=== PATIENT | male | born 1975 | race Caucasian/White ===

== ENCOUNTER → 2022-05-13 15:19 | Outpatient (CLI) | payer OTHER, SELFPAY ==
--- NOTE | ~2022-05-13 | US_ITS ---
US soft tissue LE 05/13/2022 15:35 Indication: Left popliteal pain Procedure: High-resolution Limited ultrasound of the left popliteal space Comparison: No prior studies for comparison. Findings: There is normal heterogeneous echotexture. No discrete solid or cystic mass. Impression: 1: Normal soft tissue ultrasound of the left popliteal space. No discrete mass. Reviewed, dictated and finalized at location B. Impression: 1: Normal soft tissue ultrasound of the left popliteal space. No discrete mass.
--- NOTE | ~2022-05-13 | XR_ITS ---
XR knee LT min 4V 05/13/2022 15:43 Indication: Left knee pain Procedure: 4 views left knee Comparison: No prior studies for comparison. Findings: There is anatomic alignment. No significant joint space narrowing. No fracture or traumatic malalignment. Small joint effusion. Impression: 1: Small joint effusion. Reviewed, dictated and finalized at location B. Impression: 1: Small joint effusion.
== END ==
PROVIDERS: PCP Internal Medicine; Visit Provider Internal Medicine
DX: M25.462 Effusion, left knee (principal)
CPT/HCPCS: 73564; 76882

== ENCOUNTER → 2022-06-15 15:39 | Outpatient (CLI) | payer OTHER, SELFPAY ==
--- NOTE | ~2022-06-15 | MR_ITS ---
EXAMINATION: MR knee LT wo con DATE: 06/15/2022 16:15 INDICATION: Left knee pain TECHNIQUE: Magnetic resonance imaging (MRI) of the left knee was performed without intravenous contra st. Sequences included coronal PD-weighted FSE, coronal PD-weighted FS FSE, sagittal T2-weighted FSE , sagittal PD-weighted FS FSE and axial PD weighted fat saturated FSE. COMPARISON: None. FINDINGS: Medial compartment: Vertical parrot beak configuration tear extending slightly medially and peripherally from the free ed ge to the periphery of the posterior horn of the medial meniscus. Articular cartilage is normal. Lateral compartment: Lateral meniscus is normal. Articular cartilage is normal. Patellofemoral compartment: Articular cartilage is normal. Ligaments and tendons: Anterior and posterior cruciate ligaments are normal. There is thickening and minimal increased signa l of the proximal medial collateral ligament without surrounding edema consistent with scarring relat ed to chronic sprain. The fibular collateral ligament complex is normal. The extensor mechanism is no rmal. The visualized medial and lateral hamstring tendons as well as the iliotibial band are normal. Fluid: Physiologic amount of fluid in the joint space. No loose osteochondral bodies identified. Osseous/other: There is prominent marrow edema at the medial femoral condyle surrounding deep from a subtle linear s ubarticular impaction fracture line with slight flattening but no disruption of the overlying articul ar cortex. No pathologic marrow replacing process. IMPRESSION: 1. Slight flattening of the articular cortex overlying a relatively recent subarticular fracture line with surrounding edema at the central weightbearing medial femoral condyle. 2. Vertical parrot beak configuration tear at the posterior horn of the medial meniscus. Reviewed, dictated and finalized at location B. IMPRESSION: 1. Slight flattening of the articular cortex overlying a relatively recent suba rticular fracture line with surrounding edema at the central weightbearing medi al femoral condyle. 2. Vertical parrot beak configuration tear at the posterior horn of the medial meniscus.
== END ==
PROVIDERS: PCP Internal Medicine; Visit Provider Internal Medicine
DX: M25.562 Pain in left knee (principal)
CPT/HCPCS: 73721

== ENCOUNTER → 2022-10-12 16:33 | Outpatient (CLI) | payer OTHER, SELFPAY ==
--- NOTE | ~2022-10-12 | MR_ITS ---
MRI of the left knee Clinical history: Pain Technique: Coronal proton density and proton density-weighted images, sagittal proton-density and T2 fat-sat images, and axial proton-density fat-saturated images were acquired. COMPARISON: 06/15/2022 Findings: Anterior and posterior cruciate ligaments are intact. Medial collateral ligament and the la teral collateral ligament complex are intact. Popliteus tendon is intact. There is a vertical tear of the posterior horn of the medial meniscus. No lateral meniscal tear ident ified. Articular cartilage is well preserved throughout the knee. Bone marrow signals are unremarkable. Extensor mechanism is intact. No significant joint effusion, and no Mojica's cyst. Impression: Vertical tear of the posterior horn of the medial meniscus, unchanged from prior exam. Reviewed, dictated and finalized at location M. WINDER Impression: Vertical tear of the posterior horn of the medial meniscus, unchanged from prio r exam.
== END ==
PROVIDERS: PCP Internal Medicine
DX: S83.242A Other tear of medial meniscus, current injury, left knee, initial encounter (principal); T14.90XA Injury, unspecified, initial encounter
CPT/HCPCS: 73721

== ENCOUNTER 2022-10-25 08:14 | Day surgery (SDC) | payer OTHER, SELFPAY ==
[2022-07-22 13:34] VITALS: BMI 27.6
[2022-10-18 14:01] VITALS: BMI 27.1
--- NOTE | 2022-10-25 09:27 | PM.HPGS ---
History of Present Illness History of Present Illness Consent: Risks, benefits, and alternatives have been discussed and questions answered. Patient agrees to proceed with procedure. Chief complaint: Neoplasm Screening Narrative: Anish Holloway is a 46 year old male Presents for screening colonoscopy. Patient states that his current weight appetite and bowel movements are normal. Patient denies abdominal pain. He has had no bleeding. Family history is significant that is reported his father may have had polyps in maternal grand father may have had colon cancer. Patient desires neoplasia screening. Review of Systems Review of Systems: Review of systems noncontributory. 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 Vitamin D deficiency Family History Family History Father Hypertension Obese Elevated glucose level Mother Thyroid disorder Sibling Thyroid disorder Family history of PCOS Grandparent Breast cancer Carcinoma of colon Hypertension Social History Social History (Updated 08/03/22 @ 15:23 by Kaylen Matamoros MA) Smoking status: Never smoker Alcohol intake: current Drinks per week: 10 Alcohol use details: SOCIALLY Substance use: never Substance use type: does not use Lack of Transportation: No Lack of Food: Never True Current Housing: I Have Housing Concerned About Future Housing: No Difficulty Paying Gas/Electric Bills: No Difficulty Paying for Meds: No Currently Unemployed: No Education: Master's Degree or Higher Difficulty w/ Childcare or Family Care: No Living arrangements: with family Spiritual care concerns: No Meds Home Medications and Allergies Home Medications Medication Instructions Recorded Confirmed Type aspirin 325 mg tablet 325 mg PO .COMPLEX 05/13/21 10/25/22 History cyanocobalamin (vitamin B-12) 1,000 mcg PO DAILY 06/04/21 10/25/22 History 1,000 mcg tablet blood-glucose meter,continuous #1 ea 04/22/22 10/25/22 Rx (Dexcom G6 Retanner) blood-glucose sensor (Dexcom G6 #3 ea 04/22/22 10/25/22 Rx Sensor device) rosuvastatin 40 mg tablet See Rx Instructions .Route 04/22/22 10/25/22 Rx .COMPLEX #90 tabs sodium,potassium,mag sulfates 17.5 See Rx Instructions PO .COMPLEX 07/22/22 10/25/22 Rx gram-3.13 gram-1.6 gram oral soln #354 mL (Suprep Bowel Prep Kit) levothyroxine 112 mcg tablet See Rx Instructions .Route 08/18/22 10/25/22 Rx .COMPLEX #90 tabs candesartan 16 mg tablet See Rx Instructions .Route 10/21/22 10/25/22 Rx .COMPLEX #90 tabs Allergies Allergy/AdvReac Type Severity Reaction Status Date / Time No Known Allergies Allergy Verified 10/25/22 09:22 Exam Narrative: Physical exam reveals patient to be alert. Vital signs stable. HEENT exam is unremarkable. Patient anicteric. Lungs are clear to auscultation and percussion. Heart is without murmur or extra sounds. Abdomen bowel sounds are present soft nontender with no organomegaly. Digital external rectal exam is normal. Assessment and Plan Assessment and plan (1) Colon cancer screening: Code(s): Z12.11 - Encounter for screening for malignant neoplasm of colon Status: Acute Assessment and Plan: Patient presents for screening colonoscopy. Further recommendations will be given after endoscopy.
--- NOTE | 2022-10-25 10:16 | WPDANESEPPF ---
Anes - Initial Pre Proc Eval Procedure: Operation Date: 10/25/22 10:00 Proposed Procedures p Screening Colonoscopy - Petr Bonilla MD Date/Time: 10/25/22 10:16 Surgeon: Petr Bonilla MD Pre Op Diagnosis: Neoplasm Screening Patient Data Age: 46 Gender: M Height: 1.78 m Weight: 37.7 kg Allergies Allergy/AdvReac Type Severity Reaction Status Date / Time No Known Allergies Allergy Verified 10/25/22 09:22 Home Medications Medication Instructions Recorded Confirmed Type aspirin 325 mg tablet 325 mg PO .COMPLEX 05/13/21 10/25/22 History cyanocobalamin (vitamin B-12) 1,000 mcg PO DAILY 06/04/21 10/25/22 History 1,000 mcg tablet blood-glucose meter,continuous #1 ea 04/22/22 10/25/22 Rx (Dexcom G6 Mop Worker) blood-glucose sensor (Dexcom G6 #3 ea 04/22/22 10/25/22 Rx Sensor device) rosuvastatin 40 mg tablet See Rx Instructions .Route 04/22/22 10/25/22 Rx .COMPLEX #90 tabs sodium,potassium,mag sulfates 17.5 See Rx Instructions PO .COMPLEX 07/22/22 10/25/22 Rx gram-3.13 gram-1.6 gram oral soln #354 mL (Suprep Bowel Prep Kit) levothyroxine 112 mcg tablet See Rx Instructions .Route 08/18/22 10/25/22 Rx .COMPLEX #90 tabs candesartan 16 mg tablet See Rx Instructions .Route 10/21/22 10/25/22 Rx .COMPLEX #90 tabs Patient hx anesthesia problems: none Family hx anesthesia problems: none Results Review: All pre-operative results and documents have been reviewed as part of the pre-operative evaluation. 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 Vitamin D deficiency Family History Family History Father Hypertension Obese Elevated glucose level Mother Thyroid disorder Sibling Thyroid disorder Family history of PCOS Grandparent Breast cancer Carcinoma of colon Hypertension Social History Social History (Updated 08/03/22 @ 15:23 by Kaylen Matamoros MA) Smoking status: Never smoker Alcohol intake: current Drinks per week: 10 Alcohol use details: SOCIALLY Substance use: never Substance use type: does not use Lack of Transportation: No Lack of Food: Never True Current Housing: I Have Housing Concerned About Future Housing: No Difficulty Paying Gas/Electric Bills: No Difficulty Paying for Meds: No Currently Unemployed: No Education: Master's Degree or Higher Difficulty w/ Childcare or Family Care: No Living arrangements: with family Spiritual care concerns: No Anes - Eval Final PreProcedure Day of Procedure 10/25/22 10:16 Patient weight: overweight Heart: regular rate and rhythm Lungs: clear to auscultation and normal air movement Airway: Mallampati scale class II Neurological: alert and oriented Last oral intake: >/= 8 hours ASA classification: II Emergent: no Anesthetic plan: proceed Anesthesia type and monitoring: general GIVS Results Review: All pre-operative results and documents have been reviewed as part of the pre-operative evaluation. Informed Consent: The patient's anesthetic plan and its attendant risks and benefits were discussed with the patient/family/POA. Questions were solicited and answers provided to the satisfaction of the patient/family/POA.
[2022-10-25] MEDS: LACTATED RINGERS 1,000 ML 150 ML IV CONT (10:38)
[2022-10-25 11:08] VITALS: BP 121/83; PULSE 62; RESP 16; O2SAT 100
[2022-10-25 11:18] VITALS: BP 111/74; PULSE 60; RESP 16; O2SAT 99
[2022-10-25 11:28] VITALS: BP 116/74; PULSE 57; RESP 20; O2SAT 100
--- NOTE | 2022-10-25 12:01 | WPDANESPN ---
Anes - Prog Note Post-Op Date/Time: 10/25/22 12:01 Cardiovascular status: normal Respiratory status: normal Airway patency: baseline Mental status: baseline Post-Op hydration status: normal Vital Signs: Last Vital Signs Pulse 57 L 10/25/22 11:28 Resp 20 10/25/22 11:28 BP 116/74 10/25/22 11:28 Pulse Ox 100 10/25/22 11:28 O2 Del Method Room Air 10/25/22 11:28 Pain Score (VAS): 0 I/O: Intake & Output 10/24/22 10/25/22 10/25/22 23:59 07:59 15:59 Intake Total 500 Balance 500 Post-procedural complaints: none Patient Feedback: Patient satisfied with anesthetic care.
== END 2022-10-25 11:45 | disposition home or self-care (01) ==
PROVIDERS: PCP Internal Medicine; Visit Provider Internal Medicine Gastroenterology
PROC: 0DJD8ZZ Inspection of Lower Intestinal Tract, Via Natural or Artificial Opening Endoscopic (ICD-10-PCS; CPT 45378; principal; 2022-10-25 10:00)
DX: Z12.11 Encounter for screening for malignant neoplasm of colon (principal)
CPT/HCPCS: 45378

== ENCOUNTER 2024-01-05 14:32 | Outpatient (CLI) | payer OTHER, SELFPAY ==
--- NOTE | ~2024-01-05 | XR_ITS ---
XR shoulder LT min 2V DATE: 01/05/2024 14:43 INDICATION: Left shoulder pain TECHNIQUE: 4 views COMPARISON: None FINDINGS: Old healed posterolateral left sixth and seventh rib fractures. Normal alignment at the acromioclavicular and glenohumeral joints. No fracture, dislocation, perioste al reaction or bone destruction or abnormal soft tissue calcification of the left shoulder. IMPRESSION: Old left rib fractures No significant abnormality of the left shoulder Reviewed, dictated and finalized at location B.
== END 2024-01-05 14:33 ==
PROVIDERS: PCP Internal Medicine; Visit Provider Internal Medicine
DX: M25.512 Pain in left shoulder (principal); G89.29 Other chronic pain
CPT/HCPCS: 73030

== ENCOUNTER 2024-02-08 15:51 | Outpatient (CLI) | payer OTHER, SELFPAY ==
--- NOTE | ~2024-02-08 | MR_ITS ---
EXAMINATION: MR shoulder LT wo con DATE: 02/08/2024 16:34 INDICATION: M25.512 - Pain in left shoulder . TECHNIQUE: Magnetic resonance imaging (MRI) of the left shoulder was performed without intravenous co ntrast. Sequences included axial PD-weighted FS FSE, coronal oblique PD-weighted FS FSE and T2-weight ed FS FSE, and sagittal oblique T2-weighted FS FSE and T1-weighted FSE. COMPARISON: X-ray left shoulder 01/05/2024. FINDINGS: Coracoacromial arch: Mild lateral downsloping of the type I acromion. No subacromial or subcoracoid narrowing. Rotator cuff: Supraspinatus intact. 3 mm articular sided tear of the infraspinatus at its insertion. Teres minor an d subscapularis intact. Biceps tendon and glenoid labrum: Long head of biceps tendon is intact. There is at the anteroinferior and posterior inferior quadrants of the glenoid labrum. Fluid: No abnormal fluid. Bones/cartilage: No suspicious focal or diffuse marrow signal. Degenerative subcortical cystic changes in the posterio r lateral humeral head. Mild AC joint hypertrophy. IMPRESSION: 3 mm articular sided partial infraspinatus tear, at its insertion. Anteroinferior and posterior inferior glenoid labral tears. 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 Reviewed, dictated and finalized at location K.
== END 2024-02-08 15:52 ==
PROVIDERS: PCP Internal Medicine; Visit Provider Internal Medicine
DX: M25.512 Pain in left shoulder (principal)
CPT/HCPCS: 73221